=== PATIENT | male | born 1935 | race Caucasian/White ===

== ENCOUNTER → 2018-03-21 | Outpatient (CLI) | payer MEDICARE, BC ==
--- NOTE | 2018-03-21 10:16 | XR ---
EXAMINATION TYPE: XR knee complete bilateral DATE OF EXAM: 03/21/2018 COMPARISON: NONE HISTORY: 83-year-old male chronic knee pain, OA bilateral knees. TECHNIQUE: 3 views each side FINDINGS: There is tricompartmental degenerative spurring on both sides. Mild loss of cartilage and joint space in the right medial compartment. Osteopenia. Small knee joint effusions bilaterally. No acute fractu re, subluxation, or dislocation seen. IMPRESSION: 1. Tricompartmental osteoarthrosis. Weight-bearing AP view could better assess the degree of joint sp cristhian narrowing. On these nonweightbearing views, there is mild loss of joint space in the right medial compartment. 2. Small knee joint effusions, nonspecific, likely reactive. 3. No acute osseous abnormality seen.
== END | disposition home or self-care (01) ==
LOC: RADXRYALE 09:51
PROVIDERS: ATTEND Internal Medicine
DX: M17.0 Bilateral primary osteoarthritis of knee (principal)

== ENCOUNTER → 2018-08-22 | Outpatient (CLI) | payer MEDICARE, BC ==
--- NOTE | 2018-08-22 10:48 | XR ---
EXAMINATION TYPE: XR lumbosacral spine min 4V DATE OF EXAM: 08/22/2018 COMPARISON: None HISTORY: Sciatica bilateral leg pain TECHNIQUE: Five-view lumbar spine FINDINGS: There 5 lumbar-type tubal bodies. Pedicles are intact. There is a scoliosis present with co nvexity to the right centered at L4. Degenerative disc changes are present L4-5 L5-S1. Facet degenera tive changes are present at these levels. No spondylolysis is evident. Vertebral body heights appear preserved. There is narrowing of disc height and vacuum disc phenomenon L4-5 L5-S1. IMPRESSION: 1. Degenerative disc changes L4-5 L5-S1.
== END ==
LOC: RADXRYALE 09:47
PROVIDERS: ATTEND Internal Medicine
DX: M51.17 Intervertebral disc disorders with radiculopathy, lumbosacral region (principal)
CPT/HCPCS: 72110